=== PATIENT | male | born 1955 | race African-American/Black ===

== ENCOUNTER 2019-03-14 10:17 | Inpatient (IN) ==
[2019-03-14 11:57] LABS: Amorphous Crystals,Urine Occasional /HPF (Few); Apearance,Urine CLOUDY (Clear); Bilirubin,Urine Negative (Negative); Blood, Urine Large mg/dL (Negative); Glucose,Urine (UA) Negative (Negative); Ketones,Urine Negative (Negative); Nitrite,Urine Negative (Negative); Protein,Urine 100 MG/DL; RBC,Urine 296 /HPF (0-4); Squamous Epithelial Cell,Urine Occasional /HPF (0-10); Urine Color Amber (Yellow); Urine Specific Gravity 1.015 (1.001-1.035); WBC,Urine 20 /HPF (0-6)
[2019-03-14 12:12] LABS: Basophils % 0.4 % (0.0-0.8); Eosinophils % 0.2 % (0.00-10.9); Hematocrit 24.9 VOL% (42.0-52.0); Hemoglobin 8.1 GM/DL (14.0-18.0); Immature Granulocytes % 7.7 %; Immature Granulocytes Absolute 0.41 #; Lymphocytes # 1.5 10*3/uL (1.4-4.0); Lymphocytes % 27.8 % (21.2-54.2); Mean Corpuscular HGB Conc 32.5 GM/DL (32-36); Mean Corpuscular Volume 88.6 FL (87-102); Mean Platelet Volume 9.5 FL (9.6-12.0); Monocytes % 8.8 % (1.7-12.7); Neutrophils % 55.1 % (38.7-73.9); Platelet Count 122 T/CUMM (130-400); Red Blood Count 2.81 MC/CUMM (3.8-5.5); Red Cell Distribution Width 18.9 % (9.3-17.3); White Blood Count 5.3 T/CUMM (4-12)
[2019-03-14 12:18] LABS: PT Patient Result 10.5 SECS (9.6-12.2); Partial Thromboplastin Time 27.8 SECS (20.8-36.0)
[2019-03-14 12:57] LABS: Calcium 8.8 MG/DL (8.5-10.1); Osmolality,Calculated 267.4 MOS/KG (273-304)
[2019-03-14 13:00] LABS: Band Neutrophils 27 % (0-10); Lymphocytes 36 % (20-55); Nucleated Red Blood Cells 6 (0-5); Platelet Estimate Adequate; Segmented Neutrophils 32 % (50-85); Total Cells Counted 100
[2019-03-14 13:01] LABS: Anisocytosis 2+; Basophilic Stippling Slight; Macrocytosis Slight; Poikilocytosis 1+; Polychromasia Slight
[2019-03-14] MEDS ORDERED: cefTRIAXone 1,000 MG in SODIUM CHLORIDE 0.9% 100 ML IV STA (13:27)
[2019-03-14] MEDS ORDERED: NICOTINE 21 MG/24 HR PATCH TRANSDERM PRN (14:17)
[2019-03-14] MEDS ORDERED: hydrALAZINE 20 MG/1 ML VIAL IV PRN (15:00)
[2019-03-14 15:03] LABS: Bilirubin,Direct 0.54 MG/DL (0.0-0.20)
[2019-03-14 15:04] LABS: Albumin 3.2 G/DL (3.4-5.0); Bilirubin,Indirect 0.5 MG/DL (0.0-1.0); Total Protein 6.9 G/DL (6.4-8.3)
[2019-03-14] MEDS ORDERED: INFLUENZA VIRUS VACCINE 0.5 ML SYRINGE IM ONE (15:13)
[2019-03-14] MEDS ORDERED: cefTRIAXone 2,000 MG in SYRINGE 1 EACH IV SCH (16:30)
[2019-03-14] MEDS: MORPHINE 4 MG/1 ML VIAL IV PRN ×2 (16:37→20:44)
[2019-03-14] MEDS: POTASSIUM CHLORIDE 20 MEQ TABLET PO PRN ×3 (18:47→23:15)
[2019-03-14] MEDS: BICALUTAMIDE 50 MG TABLET PO SCH (18:47)
[2019-03-14] MEDS: SODIUM CHLORIDE 0.9% 1,000 ML IV SCH (18:53)
[2019-03-14] MEDS: FINASTERIDE 5 MG TABLET PO SCH (20:43)
[2019-03-14] MEDS: TAMSULOSIN 0.4 MG CAPSULE PO SCH (20:43)
[2019-03-15] MEDS: SODIUM CHLORIDE 0.9% 1,000 ML IV SCH ×3 (02:04→14:51)
[2019-03-15] MEDS: MORPHINE 4 MG/1 ML VIAL IV PRN ×2 (05:16→20:45)
[2019-03-15 05:24] LABS: Basophils % 0.2 % (0.0-0.8); Eosinophils % 0.2 % (0.00-10.9); Hematocrit 23.7 VOL% (42.0-52.0); Hemoglobin 7.6 GM/DL (14.0-18.0); Immature Granulocytes % 7.7 %; Immature Granulocytes Absolute 0.38 #; Lymphocytes # 1.3 10*3/uL (1.4-4.0); Mean Corpuscular HGB Conc 32.1 GM/DL (32-36); Mean Corpuscular Volume 88.8 FL (87-102); Mean Platelet Volume 9.9 FL (9.6-12.0); Monocytes % 8.9 % (1.7-12.7); NRBC # 0.05 10*3/uL; Platelet Count 114 T/CUMM (130-400); Red Blood Count 2.67 MC/CUMM (3.8-5.5); Red Cell Distribution Width 19.2 % (9.3-17.3)
[2019-03-15 05:58] LABS: Albumin 2.7 G/DL (3.4-5.0); Bilirubin,Total 0.7 MG/DL (0.2-1.0); Calcium 8.3 MG/DL (8.5-10.1); Osmolality,Calculated 275.5 MOS/KG (273-304); Risk Ratio 3.6; Thyroid Stimulating Hormone 0.955 uIU/ml (0.358-3.74); Total Protein 6.2 G/DL (6.4-8.3); VLDL CHOLESTEROL 26.4 MG/DL
[2019-03-15 05:59] LABS: Anisocytosis 1+; Band Neutrophils 9 % (0-10); Hypochromasia 1+; Lymphocytes 38 % (20-55); Nucleated Red Blood Cells 3 (0-5); Ovalocytes 1+; Platelet Estimate Decreased; Poikilocytosis 1+; Polychromasia 1+; Segmented Neutrophils 48 % (50-85); Smudge Cells 1+; Total Cells Counted 100
[2019-03-15] MEDS: PANTOPRAZOLE 40 MG TABLET PO SCH (08:33)
[2019-03-15] MEDS: POTASSIUM CHLORIDE 20 MEQ TABLET PO PRN (08:33)
[2019-03-15] MEDS: BICALUTAMIDE 50 MG TABLET PO SCH (08:33)
[2019-03-15] MEDS ORDERED: LEVOFLOXACIN INJ 500 MG in PREMIX 1 EACH IV ONE (10:25)
[2019-03-15] MEDS ORDERED: SODIUM PHOSPHATE ENEMA 133 ML BOTTLE RECTAL ONE (10:26)
[2019-03-15] MEDS: LACTATED RINGERS 1,000 ML IV SCH ×2 (11:45→14:51)
[2019-03-15] MEDS ORDERED: NEOMYCIN/POLYMYXIN IRRIG SOLN 1 ML AMP BLADDERIRR ONE (11:47)
[2019-03-15] MEDS ORDERED: SODIUM CHLORIDE 0.9% 1,000 ML IV PRN (11:56)
[2019-03-15] MEDS: HYDROmorphone 2 MG/1 ML VIAL IV PRN ×4 (13:00→13:25)
[2019-03-15] MEDS ORDERED: ONDANSETRON 4 MG/2 ML VIAL ONE (13:04)
[2019-03-15] MEDS ORDERED: HYDROmorphone 2 MG/1 ML VIAL ONE (13:04)
[2019-03-15] MEDS ORDERED: LIDOCAINE 2% 5 ML VIAL ONE (13:10)
[2019-03-15] MEDS ORDERED: propofoL 200 MG/20 ML VIAL IV ONE (13:10)
[2019-03-15] MEDS ORDERED: SEVOFLURANE 1 UNIT/15 MINUTE INH ONE (13:10)
[2019-03-15] MEDS ORDERED: PHENYLEPHRINE 1 MG/10 ML SYRINGE IV ONE (13:11)
[2019-03-15] MEDS ORDERED: LACTATED RINGERS 1,000 ML IV ONE (13:11)
[2019-03-15] MEDS ORDERED: fentaNYL 100 MCG/2 ML VIAL ONE (13:11)
[2019-03-15] MEDS ORDERED: MIDAZOLAM 2 MG/2 ML VIAL ONE (13:11)
[2019-03-15] MEDS ORDERED: ONDANSETRON 4 MG/2 ML VIAL IV PRN (13:16)
[2019-03-15] MEDS: cefTRIAXone 2,000 MG in SYRINGE 1 EACH IV SCH (14:48)
[2019-03-15] MEDS: FINASTERIDE 5 MG TABLET PO SCH (20:45)
[2019-03-15] MEDS: TAMSULOSIN 0.4 MG CAPSULE PO SCH (20:45)
[2019-03-15 21:48] LABS: Hematocrit 31.2 VOL% (42.0-52.0); Hemoglobin 9.9 GM/DL (14.0-18.0)
[2019-03-16] MEDS: MORPHINE 4 MG/1 ML VIAL IV PRN ×5 (02:55→22:40)
[2019-03-16] MEDS: SODIUM CHLORIDE 0.9% 1,000 ML IV SCH ×2 (04:20→16:56)
[2019-03-16 04:53] LABS: Basophils % 0.4 % (0.0-0.8); Eosinophils % 0.2 % (0.00-10.9); Hematocrit 28.2 VOL% (42.0-52.0); Hemoglobin 9.2 GM/DL (14.0-18.0); Immature Granulocytes % 7.6 %; Immature Granulocytes Absolute 0.41 #; Lymphocytes # 1.5 10*3/uL (1.4-4.0); Lymphocytes % 28.3 % (21.2-54.2); Mean Corpuscular HGB Conc 32.6 GM/DL (32-36); Mean Corpuscular Volume 87.6 FL (87-102); Mean Platelet Volume 9.8 FL (9.6-12.0); Monocytes % 7.1 % (1.7-12.7); NRBC # 0.05 10*3/uL; Neutrophils % 56.4 % (38.7-73.9); Platelet Count 96 T/CUMM (130-400); Red Blood Count 3.22 MC/CUMM (3.8-5.5); Red Cell Distribution Width 18.3 % (9.3-17.3); White Blood Count 5.4 T/CUMM (4-12)
[2019-03-16 05:26] LABS: Anisocytosis 1+; Band Neutrophils 8 % (0-10); Lymphocytes 29 % (20-55); Myelocytes 2 %; Nucleated Red Blood Cells 1 (0-5); Ovalocytes Few; Platelet Estimate Decreased; Segmented Neutrophils 50 % (50-85); Tear Drop Cells 1+; Total Cells Counted 100
[2019-03-16 05:35] LABS: Albumin 2.5 G/DL (3.4-5.0); Bilirubin,Total 0.7 MG/DL (0.2-1.0); Calcium 8.1 MG/DL (8.5-10.1); Osmolality,Calculated 272.7 MOS/KG (273-304); Total Protein 5.9 G/DL (6.4-8.3)
[2019-03-16] MEDS: PANTOPRAZOLE 40 MG TABLET PO SCH (08:39)
[2019-03-16] MEDS: POTASSIUM CHLORIDE 20 MEQ TABLET PO PRN ×3 (08:39→13:57)
[2019-03-16] MEDS: BICALUTAMIDE 50 MG TABLET PO SCH (08:39)
[2019-03-16] MEDS ORDERED: diphenhydrAMINE 50 MG/1 ML VIAL IV ONE (12:06)
[2019-03-16] MEDS ORDERED: FAMOTIDINE INJ 40 MG in SODIUM CHLORIDE 0.9% 100 ML IV ONE (12:06)
[2019-03-16] MEDS ORDERED: PALONOSETRON 0.25 MG/5 ML VIAL IV ONE (12:07)
[2019-03-16] MEDS ORDERED: DEXAMETHASONE 10 MG/1 ML VIAL IV ONE (12:07)
[2019-03-16] MEDS ORDERED: DOCETAXEL IV ONE (13:00)
[2019-03-16] MEDS ORDERED: SODIUM CHLORIDE 0.9% IV ONE (13:00)
[2019-03-16] MEDS: cefTRIAXone 2,000 MG in SYRINGE 1 EACH IV SCH (13:33)
[2019-03-16] MEDS: CALCIUM (CARBONATE)/VITAMIN D 500 MG-200 UNIT TABLET PO SCH ×2 (13:34→21:40)
[2019-03-16] MEDS: DEXAMETHASONE 4 MG TABLET PO SCH ×2 (15:53→21:40)
[2019-03-16] MEDS: FINASTERIDE 5 MG TABLET PO SCH (21:40)
[2019-03-16] MEDS: TAMSULOSIN 0.4 MG CAPSULE PO SCH (21:40)
[2019-03-17] MEDS: MORPHINE 4 MG/1 ML VIAL IV PRN ×2 (04:05→12:15)
[2019-03-17 04:59] LABS: Basophils % 0.5 % (0.0-0.8); Hematocrit 28.8 VOL% (42.0-52.0); Hemoglobin 9.4 GM/DL (14.0-18.0); Immature Granulocytes % 8.5 %; Lymphocytes # 1.4 10*3/uL (1.4-4.0); Lymphocytes % 23.3 % (21.2-54.2); Mean Corpuscular HGB Conc 32.6 GM/DL (32-36); Mean Corpuscular Volume 86.5 FL (87-102); Mean Platelet Volume 9.7 FL (9.6-12.0); Monocytes % 4.4 % (1.7-12.7); NRBC # 0.02 10*3/uL; Neutrophils % 63.3 % (38.7-73.9); Platelet Count 103 T/CUMM (130-400); Red Blood Count 3.33 MC/CUMM (3.8-5.5); White Blood Count 5.9 T/CUMM (4-12)
[2019-03-17 05:45] LABS: Albumin 2.6 G/DL (3.4-5.0); Bilirubin,Total 0.8 MG/DL (0.2-1.0); Calcium 8.2 MG/DL (8.5-10.1); Osmolality,Calculated 276.7 MOS/KG (273-304); Total Protein 6.4 G/DL (6.4-8.3)
[2019-03-17 06:12] LABS: Band Neutrophils 4 % (0-10); Hypochromasia 2+; Lymphocytes 33 % (20-55); Metamyelocytes 6 %; Nucleated Red Blood Cells 1 (0-5); Platelet Estimate Decreased; Segmented Neutrophils 51 % (50-85); Target Cells Few; Total Cells Counted 100
[2019-03-17 06:21] LABS: Folate 5.8 NG/ML (5.4-24.0); Hepatitis B Surface Ag Quant < 0.10 Index; Hepatitis B Surface Ag Result Negative (Negative); Hepatitis C Virus Ab Quant 0.02 Index; Hepatitis C Virus Ab Result Negative (Negative); Vitamin B12 264 PG/ML (211-911)
[2019-03-17] MEDS: CALCIUM (CARBONATE)/VITAMIN D 500 MG-200 UNIT TABLET PO SCH (08:25)
[2019-03-17] MEDS: DEXAMETHASONE 4 MG TABLET PO SCH (08:25)
[2019-03-17] MEDS: PANTOPRAZOLE 40 MG TABLET PO SCH (08:25)
[2019-03-17] MEDS: BICALUTAMIDE 50 MG TABLET PO SCH (08:25)
[2019-03-17 11:54] VITALS: BP 126/68
[2019-03-17] MEDS: cefTRIAXone 2,000 MG in SYRINGE 1 EACH IV SCH (12:18)
== END 2019-03-17 15:53 | disposition home or self-care (01) | DRG 723 ==
LOC: N.EDINP 10:17 → N.ED 10:17 → N.4E 14:22 → SUATTDRO 03-15 14:51
PROVIDERS: ADMIT Emergency Medicine; ATTEND Internal Medicine

== ENCOUNTER 2019-05-01 11:36 | Inpatient (IN) ==
[2019-05-01] MEDS ORDERED: cefTRIAXone 1,000 MG in SODIUM CHLORIDE 0.9% 100 ML IV STA (12:07)
[2019-05-01] MEDS ORDERED: ACETAMINOPHEN 500 MG TABLET PO STA (12:07)
[2019-05-01 12:35] LABS: Basophils % 0.4 % (0.0-0.8); Hematocrit 27.6 VOL% (42.0-52.0); Hemoglobin 8.7 GM/DL (14.0-18.0); Immature Granulocytes % 9.2 %; Immature Granulocytes Absolute 0.44 #; Lymphocytes % 21.8 % (21.2-54.2); Mean Corpuscular HGB Conc 31.5 GM/DL (32-36); Mean Corpuscular Volume 96.5 FL (87-102); Mean Platelet Volume 9.2 FL (9.6-12.0); Monocytes % 1.9 % (1.7-12.7); NRBC # 0.36 10*3/uL; Neutrophils % 66.7 % (38.7-73.9); Platelet Count 136 T/CUMM (130-400); Red Blood Count 2.86 MC/CUMM (3.8-5.5); Red Cell Distribution Width 21.1 % (9.3-17.3); White Blood Count 4.8 T/CUMM (4-12)
[2019-05-01 12:53] LABS: Alanine Aminotransferase 11 U/L (16-61); Albumin 3.4 G/DL (3.4-5.0); Alkaline Phosphatase 918 U/L (45-117); Aspartate Amino Transferase 13 U/L (0-37); Blood Urea Nitrogen 7 MG/DL (7-18); Calcium 8.5 MG/DL (8.5-10.1); Estimated Glom Filtration Rate 116 ML/MIN; Glucose 120 MG/DL (74-106); Osmolality,Calculated 268.1 MOS/KG (273-304)
[2019-05-01 13:03] LABS: Apearance,Urine CLOUDY (Clear); Bacteria,Urine Moderate /HPF (Few); Bilirubin,Urine Negative (Negative); Blood, Urine Moderate mg/dL (Negative); Glucose,Urine (UA) Negative (Negative); Ketones,Urine Negative (Negative); Mucus,Urine Occasional /LPF (Occasional); Nitrite,Urine Negative (Negative); Protein,Urine 30 MG/DL; RBC,Urine 54 /HPF (0-4); Urine Color Yellow (Yellow); WBC,Urine 542 /HPF (0-6)
[2019-05-01 13:05] LABS: Anisocytosis 1+; Band Neutrophils 41 % (0-10); Lymphocytes 25 % (20-55); Nucleated Red Blood Cells 8 (0-5); Platelet Estimate Adequate; Segmented Neutrophils 33 % (50-85); Tear Drop Cells Few; Total Cells Counted 100
[2019-05-01 13:06] LABS: Polychromasia 1+
[2019-05-01] MEDS ORDERED: SODIUM CHLORIDE 0.9% 2,400 ML IV ONE (14:38)
[2019-05-01] MEDS ORDERED: PROMETHAZINE 25 MG TABLET PO PRN (14:50)
[2019-05-01] MEDS ORDERED: NICOTINE 21 MG/24 HR PATCH TRANSDERM PRN (14:50)
[2019-05-01] MEDS ORDERED: diphenhydrAMINE CAP 25 MG CAPSULE PO PRN (14:50)
[2019-05-01] MEDS ORDERED: traZODone 50 MG TABLET PO PRN (14:50)
[2019-05-01] MEDS ORDERED: ZALEPLON 5 MG CAPSULE PO PRN (14:50)
[2019-05-01] MEDS ORDERED: guaiFENesin/DM ER 600-30 MG TABLET PO PRN (14:50)
[2019-05-01] MEDS ORDERED: ONDANSETRON 4 MG/2 ML VIAL IV PRN (14:50)
[2019-05-01] MEDS ORDERED: ACETAMINOPHEN 325 MG TABLET PO PRN (14:50)
[2019-05-01] MEDS ORDERED: DEXAMETHASONE 4 MG TABLET PO PRN (15:05)
[2019-05-01] MEDS ORDERED: oxyCODONE/ACETAMINOPHEN 5-325 MG TABLET PO PRN (15:05)
[2019-05-01] MEDS: MEROPENEM 500 MG in SODIUM CHLORIDE 0.9% 100 ML IV SCH ×2 (15:15→20:56)
[2019-05-01 15:55] LABS: ABG Base Excess 1.9 MMOL/L (-2.5-2.5); ABG HCO3 26.1 MMOL/L (20-26); ABG Oxygen Saturation 97.9 % (95-100); ABG PCO2 33.4 MM HG (35-48); ABG PH 7.485 (7.35-7.45); ABG PO2 81.4 MM HG (80-95); ABG TCO2 23.7 MMOL/L (23-27)
[2019-05-01 15:56] LABS: Allen Test Positive; Pt O2 Delivery Device Room Air
[2019-05-01] MEDS: SODIUM CHLORIDE 0.9% 1,000 ML IV SCH (16:36)
[2019-05-01] MEDS: DOCUSATE SODIUM 100 MG CAPSULE PO SCH (20:56)
[2019-05-01] MEDS: GABAPENTIN 300 MG CAPSULE PO SCH (20:56)
[2019-05-01] MEDS: CALCIUM (CARBONATE)/VITAMIN D 500 MG-200 UNIT TABLET PO SCH (20:56)
[2019-05-01] MEDS: TAMSULOSIN 0.4 MG CAPSULE PO SCH (20:56)
[2019-05-01] MEDS: FINASTERIDE 5 MG TABLET PO SCH (21:18)
[2019-05-02] MEDS: SODIUM CHLORIDE 0.9% 1,000 ML IV SCH ×2 (01:40→10:26)
[2019-05-02] MEDS: MEROPENEM 500 MG in SODIUM CHLORIDE 0.9% 100 ML IV SCH ×4 (03:10→21:19)
[2019-05-02 05:31] LABS: Basophils % 0.5 % (0.0-0.8); Hematocrit 21.5 VOL% (42.0-52.0); Hemoglobin 6.5 GM/DL (14.0-18.0); Immature Granulocytes % 5.4 %; Immature Granulocytes Absolute 0.41 #; Lymphocytes % 26.5 % (21.2-54.2); Mean Corpuscular HGB Conc 30.2 GM/DL (32-36); Mean Corpuscular Volume 97.7 FL (87-102); Mean Platelet Volume 9.4 FL (9.6-12.0); Monocytes % 5.4 % (1.7-12.7); NRBC # 0.11 10*3/uL; Neutrophils % 62.2 % (38.7-73.9); Platelet Count 109 T/CUMM (130-400); Red Cell Distribution Width 21.3 % (9.3-17.3); White Blood Count 7.6 T/CUMM (4-12)
[2019-05-02 06:00] LABS: Albumin 2.4 G/DL (3.4-5.0); Bilirubin,Total 0.9 MG/DL (0.2-1.0); Calcium 7.5 MG/DL (8.5-10.1); Osmolality,Calculated 279.3 MOS/KG (273-304); Risk Ratio 3.55; Thyroid Stimulating Hormone 0.971 uIU/ml (0.358-3.74); Total Protein 5.4 G/DL (6.4-8.3); VLDL CHOLESTEROL 13.6 MG/DL
[2019-05-02 06:04] LABS: Band Neutrophils 3 % (0-10); Lymphocytes 38 % (20-55); Myelocytes 1 %; Segmented Neutrophils 54 % (50-85); Total Cells Counted 100
[2019-05-02 06:05] LABS: Anisocytosis 1+; Hypochromasia 1+
[2019-05-02 06:06] LABS: Platelet Estimate Adequate; Tear Drop Cells 1+
[2019-05-02] MEDS ORDERED: SODIUM CHLORIDE 0.9% 1,000 ML IV PRN ×3 (07:16→12:28)
[2019-05-02] MEDS ORDERED: diphenhydrAMINE 50 MG/1 ML VIAL IV SCH (07:30)
[2019-05-02] MEDS ORDERED: ACETAMINOPHEN 325 MG TABLET PO SCH (07:30)
[2019-05-02] MEDS: DOCUSATE SODIUM 100 MG CAPSULE PO SCH ×2 (09:23→20:31)
[2019-05-02] MEDS: BICALUTAMIDE 50 MG TABLET PO SCH (09:23)
[2019-05-02] MEDS: GABAPENTIN 300 MG CAPSULE PO SCH ×2 (09:23→20:27)
[2019-05-02] MEDS: PANTOPRAZOLE 40 MG TABLET PO SCH (09:23)
[2019-05-02] MEDS: CALCIUM (CARBONATE)/VITAMIN D 500 MG-200 UNIT TABLET PO SCH ×2 (09:23→20:27)
[2019-05-02] MEDS: TAMSULOSIN 0.4 MG CAPSULE PO SCH (20:27)
[2019-05-02] MEDS: FINASTERIDE 5 MG TABLET PO SCH (20:27)
[2019-05-03] MEDS: MEROPENEM 500 MG in SODIUM CHLORIDE 0.9% 100 ML IV SCH ×2 (02:37→09:04)
[2019-05-03 06:52] LABS: Basophils % 0.4 % (0.0-0.8); Eosinophils % 0.1 % (0.00-10.9); Hematocrit 25.8 VOL% (42.0-52.0); Hemoglobin 8.2 GM/DL (14.0-18.0); Immature Granulocytes % 8.5 %; Lymphocytes # 2.2 10*3/uL (1.4-4.0); Lymphocytes % 30.9 % (21.2-54.2); Mean Corpuscular HGB Conc 31.8 GM/DL (32-36); Mean Corpuscular Volume 94.9 FL (87-102); Mean Platelet Volume 10.4 FL (9.6-12.0); Monocytes % 4.7 % (1.7-12.7); NRBC # 0.07 10*3/uL; Neutrophils % 55.4 % (38.7-73.9); Platelet Count 118 T/CUMM (130-400); Red Blood Count 2.72 MC/CUMM (3.8-5.5); Red Cell Distribution Width 19.3 % (9.3-17.3)
[2019-05-03 07:22] LABS: Albumin 2.4 G/DL (3.4-5.0); Calcium 7.2 MG/DL (8.5-10.1); Osmolality,Calculated 275.4 MOS/KG (273-304); Total Protein 5.2 G/DL (6.4-8.3)
[2019-05-03 07:32] LABS: Band Neutrophils 2 % (0-10); Lymphocytes 24 % (20-55); Metamyelocytes 4 %; Platelet Estimate Adequate; Polychromasia Slight; Segmented Neutrophils 69 % (50-85); Total Cells Counted 100
[2019-05-03 07:33] LABS: Atypical Lymphocytes Few; Reactive Lymphocytes Slight
[2019-05-03] MEDS: CALCIUM (CARBONATE)/VITAMIN D 500 MG-200 UNIT TABLET PO SCH (09:05)
[2019-05-03] MEDS: BICALUTAMIDE 50 MG TABLET PO SCH (09:05)
[2019-05-03] MEDS: PANTOPRAZOLE 40 MG TABLET PO SCH (09:05)
[2019-05-03] MEDS: DOCUSATE SODIUM 100 MG CAPSULE PO SCH (09:05)
[2019-05-03] MEDS: GABAPENTIN 300 MG CAPSULE PO SCH (09:05)
[2019-05-03] MEDS ORDERED: POTASSIUM CHLORIDE 20 MEQ TABLET PO ONE (09:30)
[2019-05-03 11:40] VITALS: BP 124/76
== END 2019-05-03 14:05 | disposition home or self-care (01) | DRG 871 ==
LOC: N.ED 11:36 → SUATTDRO 14:50 → N.EDINP 14:50 → N.4E 16:07
PROVIDERS: ADMIT Internal Medicine; ATTEND Internal Medicine Cardiovascular Disease